=== PATIENT | female | born 1955 | race Caucasian/White ===

== ENCOUNTER 2019-08-09 09:18 | Outpatient (CLI) | payer MEDICARE, MEDICAID, SELFPAY | END 2019-08-09 09:19 | disposition home or self-care (01) | LOC: ANHBWCAUD 09:21 | DX: H91.93 Unspecified hearing loss, bilateral (principal) | CPT/HCPCS: 92557; 92567 ==

== ENCOUNTER 2023-03-05 10:24 | Outpatient (CLI) | payer MEDICARE, MEDICAID, SELFPAY | END 2023-03-05 10:25 | disposition home or self-care (01) | LOC: ANHBWCAUD 10:26 | PROVIDERS: PCP Internal Medicine Rheumatology; Visit Provider Internal Medicine Rheumatology | DX: H91.93 Unspecified hearing loss, bilateral (principal) | CPT/HCPCS: 99199 ==

== ENCOUNTER 2023-07-08 08:09 | Outpatient (CLI) | payer MEDICARE, MEDICAID, SELFPAY | END 2023-07-08 08:10 | disposition home or self-care (01) | LOC: ANHBWCAUD 08:10 | PROVIDERS: PCP Internal Medicine Rheumatology | DX: H91.93 Unspecified hearing loss, bilateral (principal) | CPT/HCPCS: 99199 ==

== ENCOUNTER 2023-11-04 08:32 | Outpatient (CLI) | payer MEDICARE, MEDICAID, SELFPAY | END 2023-11-04 08:33 | disposition home or self-care (01) | LOC: ANHBWCAUD 08:33 | PROVIDERS: PCP Internal Medicine Rheumatology | DX: H90.3 Sensorineural hearing loss, bilateral (principal); H61.23 Impacted cerumen, bilateral | CPT/HCPCS: 92557; 92567 ==